=== PATIENT | male | born 1955 | race Caucasian/White ===

== ENCOUNTER 2016-08-22 09:53 | Outpatient (CLI) | payer OTHER ==
--- NOTE | 2016-08-22 10:41 | DIAGNOSTIC IMAGING REPORT ---
PROCEDURE: US BILATERAL CAROTID DOPPLER INDICATION: ATHEROSCLEROSIS,CAROTID TECHNIQUE: Color Doppler duplex imaging of the carotid and vertebral vessels. COMPARISON: Carotid ultrasound dated 06/22/2015 FINDINGS: Right carotid system: Internal carotid stenosis 16-49% Left carotid system: Internal carotid stenosis 16-49% Vertebral System: Antegrade vertebral artery flow bilaterally. Right common carotid artery peak systolic velocity 79 cm/second. Right internal carotid artery peak systolic velocity 100 cm/second. Right external carotid artery peak systolic velocity 181 cm/second. Right zggfhktj-rm-xfzkgb carotid artery ratio 1.3 Right vertebral artery peak systolic velocity 66 cm/second. Left common carotid artery peak systolic velocity 93 cm/second. Left internal carotid artery peak systolic velocity 113 cm/second. Left external carotid artery peak systolic velocity 114 cm/second. Left aqyrurwn-xs-yzkewf carotid artery ratio 1.2 Left vertebral artery peak systolic velocity 23 cm/second. IMPRESSION: 1. Bilateral internal carotid stenoses of 16 to 49%. 2. This represents a progression from 1 year ago when both internal carotid's measured less than 15% stenosis. Velocity criteria are extrapolated from diameter data as defined by the Society of Radiologists in Ultrasound Consensus Conference, Radiology 2003; 229; 340-346.
--- NOTE | 2016-08-22 10:41 | DIAGNOSTIC IMAGING REPORT ---
PROCEDURE: US BILATERAL CAROTID DOPPLER INDICATION: ATHEROSCLEROSIS,CAROTID TECHNIQUE: Color Doppler duplex imaging of the carotid and vertebral vessels. COMPARISON: Carotid ultrasound dated 06/22/2015 FINDINGS: Right carotid system: Internal carotid stenosis 16-49% Left carotid system: Internal carotid stenosis 16-49% Vertebral System: Antegrade vertebral artery flow bilaterally. Right common carotid artery peak systolic velocity 79 cm/second. Right internal carotid artery peak systolic velocity 100 cm/second. Right external carotid artery peak systolic velocity 181 cm/second. Right grkjsebl-xr-bemqem carotid artery ratio 1.3 Right vertebral artery peak systolic velocity 66 cm/second. Left common carotid artery peak systolic velocity 93 cm/second. Left internal carotid artery peak systolic velocity 113 cm/second. Left external carotid artery peak systolic velocity 114 cm/second. Left ywpahluw-nd-espaqi carotid artery ratio 1.2 Left vertebral artery peak systolic velocity 23 cm/second. IMPRESSION: 1. Bilateral internal carotid stenoses of 16 to 49%. 2. This represents a progression from 1 year ago when both internal carotid's measured less than 15% stenosis. Velocity criteria are extrapolated from diameter data as defined by the [employer] of Radiologists in Ultrasound Consensus Conference, Radiology 2003; 229; 340-346.
== END 2016-08-22 23:00 ==
LOC: US SRH 09:53
DX: I65.23 Occlusion and stenosis of bilateral carotid arteries (principal)